=== PATIENT | male | born 1980 | race Hispanic/Latino ===

== ENCOUNTER 2021-07-16 20:44 | Emergency (ER) | payer BC ==
[2021-07-16] MEDS ORDERED: Lidocaine 1% (PF) 30 ML VIAL ONE (21:22)
[2021-07-16] MEDS ORDERED: Bacitracin 1 PK ONE (22:18)
[2021-07-16] MEDS ORDERED: Acetaminophen 500 MG TAB ONE (22:38)
== END 2021-07-16 22:43 | disposition home or self-care (01) ==
LOC: CSHERS 20:44
DX: S61.211A Laceration without foreign body of left index finger without damage to nail, initial encounter (principal); W26.8XXA Contact with other sharp object(s), not elsewhere classified, initial encounter
CPT/HCPCS: 12002; J2001